=== PATIENT | female | born 1940 | race Caucasian/White ===

== ENCOUNTER 2017-04-03 10:48 | Outpatient (CLI) | payer MEDICARE | END 2017-04-03 10:49 | disposition home or self-care (01) | LOC: DTY/OP 10:48 | PROVIDERS: ATTEND Family Medicine | DX: E11.65 Type 2 diabetes mellitus with hyperglycemia (principal) | CPT/HCPCS: 97802 ==

== ENCOUNTER 2017-05-14 03:15 | Outpatient (CLI) | payer MEDICARE | END 2017-05-14 03:16 | disposition home or self-care (01) | LOC: BICMRI 03:15 | PROVIDERS: ATTEND Internal Medicine | DX: R16.1 Splenomegaly, not elsewhere classified (principal); K82.4 Cholesterolosis of gallbladder; K76.89 Other specified diseases of liver; N28.1 Cyst of kidney, acquired; K83.9 Disease of biliary tract, unspecified | CPT/HCPCS: 74183 ==

== ENCOUNTER 2018-12-15 17:29 | Outpatient (CLI) | payer MEDICARE ==
--- NOTE | 2018-12-15 18:08 | RAD ---
TWO VIEWS CHEST: Comparison: None. History: Cough for one week. FINDINGS: Two views of the chest show normal sized cardiomediastinal silhouette. There is no evidence of consol idation, mass, or pleural effusion. The bones are unremarkable. IMPRESSION: No evidence of acute cardiopulmonary disease. POS: C
== END 2018-12-15 17:30 | disposition home or self-care (01) ==
LOC: SCSRAD 17:29
PROVIDERS: ATTEND Family Medicine
DX: R05 Cough (principal)
CPT/HCPCS: 71046

== ENCOUNTER 2019-05-21 15:25 | Outpatient (CLI) | payer MEDICARE ==
--- NOTE | 2019-05-21 16:07 | ULT ---
Venous duplex sonogram right lower extremity HISTORY: Right leg pain and edema. FINDINGS: The right common femoral vein and greater saphenous junction were evaluated along with the femoral, deep femoral, popliteal, and posterior tibial veins. There is good color and spectral Doppler flow, compression, and augmentation. IMPRESSION: No sonographic evidence of DVT within the right lower extremity.
== END 2019-05-21 15:26 | disposition home or self-care (01) ==
LOC: SCSULT 15:25
PROVIDERS: ATTEND Family Medicine
DX: R60.0 Localized edema (principal)